=== PATIENT | female | born 1970 | race Caucasian/White ===

== ENCOUNTER 2017-02-13 21:49 | Emergency (ER) | payer OTHER ==
[2017-02-13 22:06] VITALS: BP 164/121; PULSE 111; TEMP 98.4; BMI 43.6
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
[2017-02-13] MEDS ORDERED: OXYCODONE/APAP 5/325MG COMBO TABLET PO ONE (23:07)
[2017-02-13] MEDS ORDERED: OXYCODONE/APAP 5/325MG COMBO TABLET ONE (23:11)
== END 2017-02-14 00:47 | disposition home or self-care (01) ==
LOC: JER 21:49
DX: S13.4XXA Sprain of ligaments of cervical spine, initial encounter (principal); M79.672 Pain in left foot; V43.52XA Car driver injured in collision with other type car in traffic accident, initial encounter; Y92.414 Local residential or business street as the place of occurrence of the external cause; Y93.89 Activity, other specified; Y99.8 Other external cause status
CPT/HCPCS: 70450-TC; 72125-TC; 73630-TC-LT; 99281-25